=== PATIENT | female | born 1995 | race Caucasian/White ===

== ENCOUNTER → 2025-02-23 10:31 | Outpatient (CLI) | payer OTHER | END | disposition home or self-care (01) | LOC: PRENATAL 10:31 | PROVIDERS: ATTEND Obstetrics & Gynecology Maternal & Fetal Medicine | DX: O36.80X0 Pregnancy with inconclusive fetal viability, not applicable or unspecified (principal); Z36.82 Encounter for antenatal screening for nuchal translucency; Z14.8 Genetic carrier of other disease; Z3A.13 13 weeks gestation of pregnancy ==

== ENCOUNTER 2025-04-17 12:17 | Outpatient (CLI) | payer OTHER | END 2025-04-17 12:18 | disposition home or self-care (01) | LOC: PRENATAL 12:17 | PROVIDERS: ATTEND Obstetrics & Gynecology Maternal & Fetal Medicine | DX: O44.02 Complete placenta previa NOS or without hemorrhage, second trimester (principal); O36.1920 Maternal care for other isoimmunization, second trimester, not applicable or unspecified; D68.69 Other thrombophilia; Z3A.20 20 weeks gestation of pregnancy ==